=== PATIENT | female | born 1965 | race Caucasian/White ===

== ENCOUNTER 2018-07-13 02:30 | Emergency (ER) | payer OTHER, BC ==
--- NOTE | 2018-07-13 03:40 | ER Document Report ---
ED General - General Chief Complaint: Back Injury Stated Complaint: BACK INJURY Time Seen by Provider: 07/13/18 03:26 Notes: Patient is a 53-year-old female presents with complaint of injury to her back. She works as a guard at the prison. 1 of the cell block [employer]ya was closing and she tried a ortiz to be the door and door pushed her against the door frame. She has pain over the thoracic and lumbar spinal musculature. No pain over the midline spine. She denies any other injuries. No trauma anywhere else. TRAVEL OUTSIDE OF THE [place] IN LAST 30 DAYS: No Past Medical History - Social History Smoking Status: Never Smoker Drug Abuse: None, Bath salts, Cocaine, Heroin, Marijuana, Methamphetamine, Prescription drugs, Other Family History: Reviewed & Not Pertinent Review of Systems - Review of Systems Notes: My Normal Review Basic REVIEW OF SYSTEMS: CONSTITUTIONAL : Denies fever, chills, or sweats. Denies recent illness. MUSCULOSKELETAL: Has back pain SKIN: Denies rash or skin lesions. NEUROLOGICAL: Denies sensory or motor loss. ALL OTHER SYSTEMS REVIEWED AND NEGATIVE. Physical Exam - Vital signs Vitals: Temp Pulse Resp BP Pulse Ox 99.1 F 82 16 154/77 H 95 07/13/18 02:48 07/13/18 02:48 07/13/18 02:48 07/13/18 02:48 07/13/18 02:48 - Notes Notes: General Appearance: Well nourished, alert, cooperative, no acute distress, mild obvious discomfort. Vitals: reviewed, See vital signs table. Head: no swelling or tenderness to the head Eyes: PERRL, EOMI, Conjuctiva clear Mouth: No decreasd moisture Back: Patient has some pain to palpation over the thoracic and lumbar paraspinal musculature on the left. Midline spine is nontender. No pain on the right side. Extremities: strength 5/5 in all extremities, good pulses in all extremities, no swelling or tenderness in the extremities, no edema. Skin: warm, dry, appropriate color, no rash Neuro: speech clear, oriented x 3, normal affect, responds appropriately to questions. Course - Re-evaluation Re-evalutation: 07/13/18 03:39 Patient has pain only over the paraspinal musculature. No midline tenderness. No pain to palpation of the ribs themselves. Suspect she has back contusion to the thoracic hip paraspinal muscular on the left side. She has some intermit tent spasm of these muscles as well. However take Tylenol home. I'll have to warm compresses to the muscles for 20 minutes at a time. Encouraged her to return to the ER immediately if she has worsening pain, weakness or numbness into the arms or legs, or if she feels unwell in any way. Patient agrees with plan and will be discharged home. Dictation of this chart was performed using voice recognition software; therefore, there may be some unintended grammatical errors. - Vital Signs Vital signs: Temp Pulse Resp BP Pulse Ox 98.0 F 78 20 149/78 H 94 07/13/18 04:10 07/13/18 04:10 07/13/18 04:10 07/13/18 04:10 07/13/18 04:10 Discharge - Discharge Clinical Impression: Contusion, back Qualifiers: Encounter type: initial encounter Laterality: left Qualified Code(s): S20.222A - Contusion of left back wall of thorax, initial encounter Condition: Good Disposition: HOME, SELF-CARE Additional Instructions: Please take Tylenol 500 mg every 4 hours as needed for pain. Please avoid heavy lifting over the next couple days. Please use warm compresses to your back. Please return to the ER immediately if you have weakness or numbness into your arms or legs, worsening pain, difficulty breathing, or if you feel unwell in any way. Prescriptions: Metaxalone [Skelaxin 800 mg Tablet] 800 mg PO ASDIR PRN #15 tablet PRN Reason: Forms: Special Work Note, Return to Work
[2018-07-13 05:00] VITALS: BP 149/78
== END 2018-07-13 04:10 | disposition home or self-care (01) ==
LOC: ER 02:30
DX: S20.222A Contusion of left back wall of thorax, initial encounter (principal); W22.09XA Striking against other stationary object, initial encounter; Y92.148 Other place in prison as the place of occurrence of the external cause; Y99.0 Civilian activity done for income or pay
CPT/HCPCS: 99283